=== PATIENT | male | born 1940 | race Caucasian/White ===

== ENCOUNTER 2016-09-04 10:45 | Emergency (ER) | payer MEDICARE, BC ==
[~2016-09-04] VITALS: Ht 180.3 cm; Wt 69.8 kg
[2016-09-04 11:42] VITALS: BP 120/88
== END 2016-09-04 11:39 | disposition home or self-care (01) ==
LOC: ED 10:48
DX: L03.114 Cellulitis of left upper limb (principal); M70.32 Other bursitis of elbow, left elbow; F17.210 Nicotine dependence, cigarettes, uncomplicated
CPT/HCPCS: 99282; 99283